=== PATIENT | male | born 2000 | race Caucasian/White ===

== ENCOUNTER 2019-07-27 11:14 | Emergency (ER) | payer OTHER ==
[~2019-07-27] VITALS: Ht 190.5 cm; Wt 99.8 kg
[2019-07-27 12:36] LABS: BASO % 0.1 % (0.0-1.0); EOS % 0.2 % (0.0-3.0); HEMATOCRIT 46.8 % (42.0-52.0); HEMOGLOBIN 15.7 g/dl (13.5-17.5); LYMPH # 1.3 10^3/uL (1.5-5.0); LYMPH % 15.6 % (24.0-44.0); MEAN CORPUSCULAR HEMOGLOBIN 29.5 pg (27.0-33.0); MEAN CORPUSCULAR HGB CONC 33.5 g/dl (32.0-36.5); MEAN CORPUSCULAR VOLUME 87.8 fl (80.0-96.0); MONO # 0.6 10^3/uL (0.0-0.8); MONO % 7.1 % (0.0-5.0); NEUTROPHILS # 6.2 10^3/uL (1.5-8.5); NEUTROPHILS % 76.6 % (36.0-66.0); PLATELET COUNT, AUTOMATED 205 10^3/uL (150-450); RED BLOOD COUNT 5.33 10^6/uL (4.30-6.10); WHITE BLOOD COUNT 8.1 10^3/uL (4.0-10.0)
[2019-07-27 12:57] LABS: ALBUMIN 4.1 GM/DL (3.2-5.2); ALT/SGPT 57 U/L (12-78); BILIRUBIN,TOTAL 0.4 MG/DL (0.2-1.0); BLOOD UREA NITROGEN 17 MG/DL (7-18); CALCIUM LEVEL 10.3 MG/DL (8.5-10.1); CARBON DIOXIDE LEVEL 31 MEQ/L (21-32); CHLORIDE LEVEL 105 MEQ/L (98-107); CREATININE FOR GFR 1.26 MG/DL (0.70-1.30); GLUCOSE, FASTING 69 MG/DL (70-100); POTASSIUM SERUM 4.5 MEQ/L (3.5-5.1); SODIUM LEVEL 141 MEQ/L (136-145); TOTAL PROTEIN 7.1 GM/DL (6.4-8.2)
[2019-07-27 15:29] VITALS: BP 129/56
--- NOTE | 2019-07-27 21:48 | ECGEPIP ---
[facility] - ED Test Date: 2019-07-27 Pat Name: JOVANA BYRNES Department: Room: - Gender: Male Customer Supply Coordinator: : 2000 Requested By: KATERIN Campbell PA-C Order Number: [id number] Reading MD: Chaparro Rolon Measurements Intervals [place] Rate: 64 P: 39 HI: 148 QRS: 109 QRSD: 113 T: 40 QT: 391 QTc: 406 Interpretive Statements SINUS RHYTHM WITH SINUS ARRHYTHMIA INCOMPLETE RIGHT BUNDLE BRANCH BLOCK ST CHANGES, PROBABLY EARLY REPOLARIZATION Comparison tracing not on file Electronically Signed on 07-27-2019 21:48:02 EDT by Chaparro Rolon
--- NOTE | 2019-07-27 22:03 | ECGEPIP ---
[facility] - ED Test Date: 2019-07-27 Pat Name: JOVANA BYRNES Department: Room: - Gender: Male Meeting Facilitator: TO : 2000 Requested By: BENY Campbell PA-C Order Number: [id number] Reading MD: Chaparro Rolon Measurements Intervals [place] Rate: 53 P: 50 IN: 147 QRS: 103 QRSD: 112 T: 51 QT: 403 QTc: 381 Interpretive Statements SINUS BRADYCARDIA WITH SINUS ARRHYTHMIA Right axis deviation Incomplete right bundle branch block ST changes probably early repolarization Similar to tracing done same date at 12:08 Electronically Signed on 07-27-2019 22:02:57 EDT by Chaparro Rolon
== END 2019-07-27 15:43 | disposition home or self-care (01) ==
LOC: M ED 11:14
DX: S00.81XA Abrasion of other part of head, initial encounter (principal); W19.XXXA Unspecified fall, initial encounter; Y92.84 Military training ground as the place of occurrence of the external cause; Y99.1 Military activity; R55 Syncope and collapse; F17.210 Nicotine dependence, cigarettes, uncomplicated